=== PATIENT | female | born 1990 | race Caucasian/White ===

== ENCOUNTER 2021-07-10 10:42 | Emergency (ER) | payer OTHER, SELFPAY ==
[2021-07-10 11:08] VITALS: BP 137/76; PULSE 80; RESP 16; TEMP 36.6; O2SAT 100; BMI 23.9
--- NOTE | 2021-07-10 12:02 | ED_ITS ---
HPI - Back Pain/Injury General Chief Complaint: Back Pain/Injury Stated Complaint: low back pain Time Seen by Provider: 07/10/21 12:02 Source: patient Mode of arrival: ambulatory Limitations: no limitations History of Present Illness HPI Narrative: 31 y/o female with history of L5-S1 disc herniation about 5 weeks ago presents to the ER with worsening low back pain despite taking motrin and tylenol. She works as a nurse at [employer], and was diagnosed with disc herniation when she was hospitalized with COVID pneumonia. She had a fever of 103 so MRI was done which showed disc herniation. Her fever was thought to be due to her COVID pneumonia. She has been managed by her primary care doctor with full-dose Tylenol and Motrin which intermittently helps. She also has been using topical [place] balm which helpsand had short course of Flexeril with no improvement. She has a chiropractor appointment next Tuesday and plans to see her PCP early next week, however the pain was so bad this morning she was curled up in a ball crying. The pain now radiates down the back of both of her legs. She has no numbness, weakness, tingling, saddle paresthesias, urinary or bladder incontinence. No fevers. No new trauma. MD elicited complaint: back pain Pertinent past history: prior back pain Onset (ago): week(s) (5) Timing: constant Severity: severe Pain scale (0-10): 10 Similar Symptoms Previously: Yes Quality: burning, sharp and aching Location: lumbar spine Radiation: left leg below the knee and right leg below the knee Exacerbating factors: movement Relieving factors: medication and sitting upright Context: unknown Associated symptoms: denies other symptoms Treatments prior to arrival: NSAIDS and acetaminophen Work related injury: No Related Data Previous Rx's Medication Instructions Recorded oxycodone 5 mg tablet 5 mg PO Q6H PRN #10 tab 07/10/21 prednisone 20 mg tablet 40 mg PO DAILY #10 tab 07/10/21 Allergies Allergy/AdvReac Type Severity Reaction Status Date / Time aspirin [ASA] Allergy Unknown UNKNOWN Unverified 06/12/20 18:24 NSAIDS (Non-Steroidal Allergy Unknown UNKNOWN Unverified 06/12/20 18:24 Anti-Inflamma [NSAIDS (NON-STEROIDAL ANTI-INFLAMMA] Sulfa (Sulfonamide Allergy Unknown UNKNOWN Unverified 06/12/20 18:24 Antibiotics) [SULFA (SULFONAMIDE ANTIBIOTICS)] tramadol [TRAMADOL] Allergy Unknown UNKNOWN Unverified 06/12/20 18:24 Review of Systems Review of Systems: Constitutional: No Fever, No Chills Cardiovascular: No Chest Pain, No SOB Respiratory: No Cough, No Sputum Gastrointestinal: No Nausea, No Vomiting, No Diarrhea, No abdominal Pain Musculoskeletal: + joint pain, + Myalgias Skin: No Skin Lesions, No rash Neuro: No Weakness, No Numbness, No Dizziness, No Headache Psych: No Anxiety/Panic, No Depression Heme/Lymph: No Bruising, No Lymphadenopathy Endocrine: No Polyuria, No Polydipsia [facility] Past Medical History Medical History (Updated 07/10/21 @ 12:12 by KAUSHAL Vicente) Lumbar disc herniation Social History Social History Advance Directives: No Patient : No Physical Exam Vital Signs: Vital Signs: Last Vital Signs Temp 97.8 F 07/10/21 11:08 Pulse 80 07/10/21 11:08 Resp 16 07/10/21 11:08 BP 137/76 07/10/21 11:08 Pulse Ox 100 07/10/21 11:08 Body Mass Index 23.9 Appearance: Alert young female sitting on a chair leaning forward. Oriented X3. No acute distress. HEENT: normal inspection CVS: Normal heart rate and rhythm. Pulses normal. Respiratory: No respiratory distress. Skin: Skin warm and dry. Normal skin color. Normal skin turgor. No rashes. Back: normal inspection, lower lumbar tenderness of spine and bilateral associated soft tissues. +SI joint tenderness bilaterally. DTRs intact throughout. Extremities: atraumaic x4, no edema Neuro: Oriented X 3. No motor deficit. No sensory deficit. Ambulates with a slow but steady gait Course Course Course Narrative: 31-year-old female presenting with worsening low back pain in the setting of known L5-S1 disc herniation. She has no red flag symptoms of low back pain including no bowel or bladder incontinence, no numbness, no tingling, no weakness, and no fevers. She is here seeking temporary relief until she can see her chiropractor next week. She also has plans to see her PCP next week. She has new SI joint irritation with sciatica traveling down both legs. Will plan to start a course of steroids to help with the inflammation. Will also provide p.r.n. oxycodone as needed for severe pain; she was counseled on the use of this medication and is addicting potential. She will be given a very short course. She is stable for discharge home with supportive care and close outpatient follow-up. Critical Care Time Critical Care Time Critical Care Time: No Discharge Plan Discharge Clinical Impression: Sciatica Qualifiers: Laterality: bilateral Qualified Code(s): M54.31 - Sciatica, right side Low back pain Qualifiers: Chronicity: chronic Back pain laterality: bilateral Sciatica presence: with sciatica Sciatica laterality: bilateral sciatica Qualified Code(s): M54.42 - Lumbago with sciatica, left side Patient Disposition: Home, Self-Care Instructions: Sciatica (ED), Lower Back Exercises (ED) Additional Instructions: No bending, lifting or twisting. Use ice several times per day for 20 minutes at a time for the next 48 hours and then change to heat. Take the prescribed oxycodone as needed for severe pain. Do not drive after taking this medication. Continue taking Tylenol and Motrin for pain. Take the prescribed prednisone to help decrease the inflammation and swelling. Follow up with your Primary Care Doctor this week. If your pain worsens, if you develop new numbness, tingling, weakness, loss of function or incontinence call 911 or come back to the ER right away for evaluation. Prescriptions: New prednisone 20 mg tablet 40 mg PO DAILY Qty: 10 RF: 0 oxycodone 5 mg tablet 5 mg PO Q6H PRN (Reason: pain) Qty: 10 RF: 0 Stand Alone Forms: Work/School Release Interventions: ED Discharge Assessment Last Done: 07/10/21 12:25 Discharge Date/Time: 07/10/21 12:26
== END 2021-07-10 12:26 | disposition home or self-care (01) ==
PROVIDERS: Emergency Provider Emergency Medicine
DX: M54.42 Lumbago with sciatica, left side (principal)
CPT/HCPCS: 99283

== ENCOUNTER 2021-08-13 11:29 | Emergency (ER) | payer OTHER, SELFPAY ==
--- NOTE | ~2021-08-13 | MR_ITS ---
EXAMINATION: MR LUMBAR SPINE WITHOUT AND WITH CONTRAST CLINICAL INFORMATION: Worsening lower back pain. Abnormal CT scan. COMPARISON: CT scan of the lumbar spine obtained earlier 08/13/2021. TECHNIQUE: MRI of the lumbar spine was obtained using routine sequences with and without contrast. Intravenous contrast: Gadavist6 mL FINDINGS: VERTEBRAL BODIES AND PARASPINAL STRUCTURES: There is straightening of the normal lumbar lordosis, and there is a mild levoscoliosis. There is marked narrowing of intervertebral disc height at L5-S1 with significant irregular endplate changes, corresponding to findings seen on the recent CT scan. There is intense STIR signal from the bodies of L5 and S1, which demonstrate intense and relatively uniform enhancement. Fluid signal is noted within the intervertebral disc. The disc appears to protrude into the epidural space posteriorly, and there is a fluid collection in the epidural space which has peripheral enhancement, consistent with an evolving abscess. The fluid collection measures approximately 1.0 x 1.8 x 1.3 cm in oblique AP, transverse and craniocaudal dimensions. There is mass effect on the ventral thecal sac. There is also paravertebral fullness with mild enhancement at this level but no discrete fluid collection is demonstrated, and this may be consistent with a phlegmon. The psoas muscles appear to have normal signal without enhancement. The paraspinal soft tissues appear normal. Elsewhere, marrow signal is homogenous. There appear to be a few retroperitoneal lymph nodes on the right at L4-L5. The visualized pelvic structures are unremarkable. CONUS MEDULLARIS AND CAUDA EQUINA: Normal, terminating at the level of T12-L1. The cauda equina nerve roots appear normal and do not demonstrate abnormal enhancement. The filum terminale appears normal. The lower thoracic spinal cord has normal signal without abnormal enhancement. SPINAL LEVELS: L1-L2: The facet joints appear normal bilaterally. Disc contour is normal. There is no central stenosis or foraminal narrowing. L2-L3: The facet joints appear normal bilaterally. Disc contour is normal. There is no central stenosis or foraminal narrowing. L3-L4: The facet joints appear normal bilaterally. Disc contour is normal. There is no central stenosis or foraminal narrowing. L4-L5: The facet joints appear normal. There is a mild diffuse disc bulge, but there is no foraminal nerve root impingement or central stenosis. L5-S1: There is mild bilateral facet arthropathy. As described above, there is posterior protrusion of the intervertebral disc with fluid with peripheral enhancement consistent with an evolving abscess. There is mass effect on and compression of the thecal sac at this level. There are small inferior foraminal disc protrusions bilaterally. MR/MR lumbar spine wo/w con IMPRESSION: 1. There is a peripherally enhancing epidural fluid collection at the level of L5-S1 with distortion the ventral thecal sac, consistent with an evolving abscess. It appears to extend from the intervertebral disc, and there are erosive changes of the adjacent L5-S1 endplates. The collection compresses the thecal sac. 2. In addition, there is marked edematous STIR signal in the bodies of L5 on S1 which demonstrates enhancement, and the findings are consistent with discitis/osteomyelitis at this level. 3. There is soft tissue fullness with enhancement in the paravertebral region at L5-S1, but without a focal fluid collection to suggest a paravertebral abscess at present. 4. This critical result was discussed with KAUSHAL Macedo by telephone on 08/13/2021 at 6:50 PM and it was ascertained that the content and urgency of the report was understood at the time of direct communication.
--- NOTE | ~2021-08-13 | CT_ITS ---
EXAMINATION: CT LUMBAR SPINE WITHOUT CONTRAST CLINICAL INFORMATION: History of herniated disc on MRI Tara L5-S1 with worse pain. COMPARISON: None TECHNIQUE: Helical non-contrast CT images were obtained through the lumbar spine without contrast. Multiplanar reformats were rendered and reviewed. This CT examination was performed using dose optimization techniques as appropriate, variously including the following: *Automated exposure control *Adjustment of mA and/or kV according to patient size (this includes techniques or standardized protocols for targeted exams where dose is matched to indication/reason for exam; i.e. extremities or head) *Use of iterative reconstruction technique DLP: 397 mGy-cm FINDINGS: There are erosive changes at the opposing endplates of L5-S1. There is prominent soft tissue attenuation within the ventral epidural space at the L5-S1 level extending to the right-sided neural foramen. There is associated moderate spinal canal stenosis as well as significant narrowing of the right neural foramen and right subarticular zone. Paravertebral soft tissue abnormality is also seen. The psoas muscles appear symmetric. There is mild degree of levoscoliotic curvature. No significant disc height loss is noted apart from the L5-S1 level. The spinal canal and neural foramina are patent. CT/CT lumbar spine wo con IMPRESSION: At the L5-S1 level there are erosive changes involving the opposing endplates with circumferential soft tissue abnormality involving the paravertebral regions as well as the ventral epidural space spanning the L5-S1 level. Overall, the imaging features are concerning for osteomyelitis discitis with epidural phlegmon. Underlying disc herniation/bulging is also likely present. Spinal canal stenosis appears moderate in addition to significant narrowing of the right subarticular zone and right neural foramen. This critical result was discussed with Maribeth Humphries on 08/13/2021 2:10 PM, and it was ascertained that the content and urgency of the report was understood at the time of direct communication.
[2021-08-13 11:59] VITALS: BP 124/77; PULSE 92; RESP 18; TEMP 36.3; O2SAT 98; BMI 23.9
[2021-08-13] MEDS: predniSONE 20 MG TABLET 60 MG PO (12:28)
[2021-08-13] MEDS: diazePAM 5 MG TABLET 10 MG PO ×2 (12:28→18:28)
[2021-08-13] MEDS: oxyCODONE HCl Immed Release 5 MG TABLET PO (12:29)
--- NOTE | 2021-08-13 12:59 | ED.BACK ---
HPI - Back Pain/Injury General Chief Complaint: Back Pain/Injury <KAUSHAL Macedo - Last Filed: 08/13/21 18:46> Stated Complaint: back pain <KAUSHAL Macedo Last Filed: 08/13/21 18:46> Time Seen by Provider: 08/13/21 12:11 <KAUSHAL Macedo Last Filed: 08/13/21 18:46> Source: patient <KAUSHAL Macedo Last Filed: 08/13/21 18:46> Mode of arrival: ambulatory <KAUSHAL Macedo - Last Filed: 08/13/21 18:46> Limitations: no limitations <KAUSHAL Macedo Last Filed: 08/13/21 18:46> History of Present Illness HPI Narrative: 31-year-old female with a past medical history of L1-S1 disc herniation confirmed by MRI per patient in May 2021 presenting to the ED with complaints of worsening back pain despite taking zvhs-cvh-cenuzrm medications such as Tylenol. She reports that she works as a nurse at [employer] and was diagnosed with disc herniation when she was hospitalized with COVID pneumonia. She had a fever of 103 so MRI was done which showed disc herniation. Her fever was thought to be due to her COVID pneumonia. She has been managed by her primary care provider with full dose Tylenol and Motrin which helps intermittently. She reports she has also been using pqjz-ucu-ogjvkll topical [place] balm which helps and has had short courses of Flexeril with no improvement. She reports that she has been seen a chiropractor although she reports that she does not feel like her pain is getting any better and is just worsening despite all the treatment that she has tried above. She reports that the pain stays in her lumbar spine and it feels like a muscle spasm and occasionally radiates to her left buttocks but does not radiate anywhere further. She denies any fevers, chills, dizziness, headaches, neck pain/injury/stiffness, chest pain or shortness of breath, dyspnea on exertion, orthopnea, palpitations, abdominal pain, dysuria, hematuria, abnormal vaginal discharge, numbness, tingling, weakness, saddle paresthesias, urinary or bowel incontinence or retention, recent travel or falls or any other symptoms complaints or concerns at this time. Mother showed me text messages of an MRI results and I explained her that I will obtain the results of the MRI. <KAUSHAL Macedo - Last Filed: 08/13/21 18:46> MD elicited complaint: back pain <KAUSHAL Macedo - Last Filed: 08/13/21 18:46> Pertinent past history: prior back pain <KAUSHAL Macedo - Last Filed: 08/13/21 18:46> Onset (ago): day(s) <KAUSHAL Macedo - Last Filed: 08/13/21 18:46> Timing: constant and progressively worsening <KAUSHAL Macedo - Last Filed: 08/13/21 18:46> Severity: severe <KAUSHAL Macedo - Last Filed: 08/13/21 18:46> Pain scale (0-10): 10 <KAUSHAL Macedo - Last Filed: 08/13/21 18:46> Similar Symptoms Previously: Yes <KAUSHAL Macedo - Last Filed: 08/13/21 18:46> Quality: aching <KAUSHAL Macedo - Last Filed: 08/13/21 18:46> Location: lumbar spine <KAUSHAL Macedo - Last Filed: 08/13/21 18:46> Radiation: none <KAUSHAL Macedo - Last Filed: 08/13/21 18:46> Exacerbating factors: movement, supine positioning, sitting upright, walking and lifting <KAUSHAL Macedo - Last Filed: 08/13/21 18:46> Relieving factors: none <KAUSHAL Macedo - Last Filed: 08/13/21 18:46> Context: unknown <KAUSHAL Macedo - Last Filed: 08/13/21 18:46> Associated symptoms: difficulty walking <KAUSHAL Macedo - Last Filed: 08/13/21 18:46> Treatments prior to arrival: other (Vhty-cgu-ywuyaen medication no symptomatic relief) <KAUSHAL Macedo - Last Filed: 08/13/21 18:46> Work related injury: No <KAUSHAL Macedo - Last Filed: 08/13/21 18:46> Related Data Home Medications: Previous Rx's Medication Instructions Recorded oxycodone 5 mg tablet 5 mg PO Q6H PRN #10 tab 07/10/21 prednisone 20 mg tablet 40 mg PO DAILY #10 tab 07/10/21 <KAUSHAL Macedo - Last Filed: 08/13/21 18:46> Allergies/Adverse Reactions: Allergies Allergy/AdvReac Type Severity Reaction Status Date / Time aspirin [ASA] AdvReac Unknown UNKNOWN Unverified 08/13/21 11:58 NSAIDS (Non-Steroidal AdvReac Unknown UNKNOWN Unverified 08/13/21 11:58 Anti-Inflamma [NSAIDS (NON-STEROIDAL ANTI-INFLAMMA] Sulfa (Sulfonamide AdvReac Unknown UNKNOWN Unverified 08/13/21 11:58 Antibiotics) [SULFA (SULFONAMIDE ANTIBIOTICS)] tramadol [TRAMADOL] AdvReac Unknown UNKNOWN Unverified 08/13/21 11:58 <KAUSHAL Macedo - Last Filed: 08/13/21 18:46> Review of Systems Review of Systems: Constitutional : No trauma, No Weight loss, No Fever, No Chills, ENT/Mouth : No Hearing loss, No Ear Pain, No Nasal Congestion, No Sinus Pain, No Hoarseness, No sore throat, No Rhinorrhea, No Swallowing Difficulty Cardiovascular : No Chest Pain, No SOB Respiratory : No Cough, No Dyspnea Gastrointestinal : No Nausea, No Vomiting, No Diarrhea, No abdominal Pain, No Hematochezia, No Melena Genitourinary : No Dysuria, No Urinary Frequency, No Hematuria, No Urinary or Bowel Incontinence/retention Musculoskeletal : + Back pain, No neck pain, No joint stiffness, No joint swelling Skin : No Skin Lesions, No rash or signs of infection Neuro : No Weakness, No radiation, No Numbness, No Paresthesias, No headache, no loss of bowel or bladder incontinence, no saddle anesthesia, Focal weakness, No radiation Denies history of IV drug usage. <KAUSHAL Macedo - Last Filed: 08/13/21 18:46> Yes all other systems are reviewed and are negative <KAUSHAL Macedo - Last Filed: 08/13/21 18:46> [facility], [facility] Past Medical History Attestation statement: The following information was validated with the patient. <KAUSHAL Macedo - Last Filed: 08/13/21 18:46> Medical History: Medical History Lumbar disc herniation <KAUSAHL Macedo - Last Filed: 08/13/21 18:46> Social History Social History: Social History Advance Directives: No Advance Directives Information Provided: No Patient : No <KAUSHAL Macedo - Last Filed: 08/13/21 18:46> Physical Exam Vital Signs: Vital Signs: Last Vital Signs Temp 98.2 F 08/13/21 20:15 Pulse 94 08/13/21 20:15 Resp 18 08/13/21 20:15 BP 126/79 08/13/21 20:15 Pulse Ox 97 08/13/21 20:15 Body Mass Index 23.9 vital signs have been reviewed as normal and appeared to be correct. Blood pressure normal. Heart rate normal. Respiration rate normal. Temperature normal. Oxygen saturation normal. <KAUSHAL Macedo - Last Filed: 08/13/21 18:46> Vital Signs: Last Vital Signs Temp 98.2 F 08/13/21 20:15 Pulse 94 08/13/21 20:15 Resp 18 08/13/21 20:15 BP 126/79 08/13/21 20:15 Pulse Ox 97 08/13/21 20:15 Body Mass Index 23.9 <KAUSHAL Salas - Last Filed: 08/13/21 20:21> Appearance: Alert. Oriented X3. No acute distress. Head: Normal external exam. Normocephalic. Atraumatic. Eyes: PERRLA. EOMI. Conjunctiva and sclera normal. Eyelids normal. ENT: Pharynx normal. Uvula midline. Moist mucous membranes. Neck: Normal inspection. Neck supple. FROM. No adenopathy. No meningeal signs. No neck mass noted. Nontender. CVS: Normal heart rate and rhythm. Heart sound normal. No murmurs noted. Pulses normal throughout. Respiratory: No respiratory distress. Painless inspiration. Breath sounds normal. No wheezes/rales/rhonchi noted. Chest nontender. No accessory muscle usage noted or decreased air movement noted. Abdomen: Soft and nontender. Bowel sounds normal in all 4 quadrants. No distention noted. No organomegaly noted. No visible injury noted. Back: No CVA tenderness. Full range of motion noted. No obvious deformities, or edema. Mild mid and para-spinal muscular tenderness from lumbar region to coccyx. Full ROM in back and lower extremities. 5/5 strength hip extension/flexion, abduction, adduction. Mild Lumbar pain with hip flexion against resistance. Straight leg raise test negative on right; Straight leg raise test negative on left; Reflexes normal ankle and knee bilaterally; EHL motor strength normal bilaterally. No rashes/lesion/induration/fluctuance or signs infection noted. Rectum: No hemorrhoids noted. Patient has normal rectal sensation/rectal tone. Normal sphincter tone. Skin: Skin warm and dry. Normal skin color. Normal skin turgor. No rashes/lesions/lacerations noted. Extremities: Extremities exhibit normal range of motion. Extremities nontender. Neuro: Oriented X 3. No motor deficit. No sensory deficit. Reflexes normal. Patient has a normal slow steady gait. <KAUSHAL Macedo - Last Filed: 08/13/21 18:46> Course Course Course Narrative: 12:20pm - Pt c likely muscular pain, but could be herniated disc. Normal slow steady gait. She has a normal rectal exam. Normal rectal sensation/tone. Normal sphincter tone. Neuro exam shows no deficits. Not c/w Pyelo/UTI/kidney stone/spinal fx. Not cauda equina syndrome. Not c/w AAA/epidural abscess/dissection.No high risk Hx (Incont, fever, immunosupp, recent surgery/LP, coag, signif trauma, wt loss, puls mass, hx/o Ca, TB, or IVDU) to warrant MRI although when I reviewed the patient's MRI with and without contrast on 06/11/2021 it revealed L1-S1 broad-based central disc extrusion deforming the ventral epidural soft tissues and causing narrowing of the bilateral subarticular zones with likely compromise of the bilateral S1 transversing nerve root. L4-L5 small central annular tear. Otherwise, unremarkable MRI of lumbar spine with and without contrast. No evidence of epidural abscess. Therefore at this time will obtain a CT scan of lumbar spine without contrast provide symptomatic relief with 30 mg of Toradol, 60 mg of prednisone, 10 mg of Valium and 5 mg of oxycodone then re-evaluate. <KAUSHAL Macedo - Last Filed: 08/13/21 18:46> Reevaluation(s) Reevaluation #1: - CT scan of lumbar spine without contrast revealed at the L5-S1 level there are erosive changes involving the opposing endplates with circumferential soft tissue abnormality involving the para vertebrae regions as well as the ventral epidural space spanning the L5-S1 level. Overall, the imaging features are concerning for osteomyelitis discitis with epidural phlegmon. Underlying disc herniated/bulging is also likely present. Spinal canal stenosis appears moderate in addition to significant narrowing of the right subarticular zone and right neural foramen. - therefore at this time patient will need an MRI with and without contrast to rule out the above - therefore will obtain labs, UA, UHCG. MRI screening form filled out by the patient her mother at bedside and the RN an MRI called reported that the MRI will be done after 17:00. Patient and mother at bedside understand agree this plan. <KAUSHAL Macedo - Last Filed: 08/13/21 18:46> Time: 14:23 <KAUSHAL Macedo - Last Filed: 08/13/21 18:46> Reevaluation #2: - MRI pending at this time sign out to MONIKA Weber pending MRI with and without contrast results <KAUSHAL Macedo - Last Filed: 08/13/21 18:46> Time: 18:46 <KAUSHAL Macedo - Last Filed: 08/13/21 18:46> Reevaluation #3: Spoke to Dr. Ephraim Sanchez Neurosurgery at [facility], who stated without this being a cauda equia syndrome, she would not need surgery, but could be admitted for pain management and antibiotics, and would need an IR biopsy. Will hear back from [facility] hospitalist if she can be transferred directly to acute care floor. <KAUSHAL Salas - Last Filed: 08/13/21 20:21> Additional Reevaluation(s): MRI today: MR/MR lumbar spine wo/w con IMPRESSION: 1. There is a peripherally enhancing epidural fluid collection at the level of L5-S1 with distortion the ventral thecal sac, consistent with an evolving abscess. It appears to extend from the intervertebral disc, and there are erosive changes of the adjacent L5-S1 endplates. The collection compresses the thecal sac. ? 2. In addition, there is marked edematous STIR signal in the bodies of L5 on S1 which demonstrates enhancement, and the findings are consistent with discitis/osteomyelitis at this level. ? 3. There is soft tissue fullness with enhancement in the paravertebral region at L5-S1, but without a focal fluid collection to suggest a paravertebral abscess at present. ? 4. This critical result was discussed with KAUSHAL Macedo by telephone on 08/13/2021 at 6:50 PM and it was ascertained that the content and urgency of the report was understood at the time of direct communication. Patient admitted to [facility] 2 neuro acute floor, accepting <KAUSHAL Salas - Last Filed: 08/13/21 20:21> MDM - Back Pain/Injury Medical Records Attestation: I reviewed the patient's medical records. <KAUSHAL Macedo - Last Filed: 08/13/21 18:46> Lab Data Result diagrams: : 08/13/21 14:30 08/13/21 14:30 <KAUSHAL Macedo - Last Filed: 08/13/21 18:46> Labs: Lab Results 08/13/21 08/13/21 08/13/21 Range/Units 14:30 14:30 14:30 WBC 10.6 (4.8-10.8) X10*3/uL RBC 4.16 L (4.20-5.50) X10*6/uL Hgb 11.7 L (12.0-16.0) g/dl Hct 36.3 L (37.0-47.0) % MCV 87.3 (80.0-98.0) fL MCH 28.1 (27.0-33.0) pg MCHC 32.2 (31.0-35.0) g/dl RDW 13.8 (11.0-16.0) % Plt Count 312 (160-400) X10*3/uL MPV 9.5 (9.4-12.3) fL Immature Gran % (Auto) 0.3 (0.0-0.4) % Neut % (Auto) 86.3 H (45-73) % Lymph % (Auto) 9.5 L (20-40) % [place] % (Auto) 3.7 (2-11) % Eos % (Auto) 0.1 (0-4) % Baso % (Auto) 0.1 (0-2) % Lymph # (Auto) 1.0 L (1.2-4.9) X10*3/uL [place] # (Auto) 0.4 (0.1-1.2) X10*3/uL Eos # (Auto) 0.0 (0.0-0.4) X10*3/uL Baso # (Auto) 0.0 (0.0-0.2) X10*3/uL Abs Immat Gran (auto) 0.03 (0.00-0.03) X10*3/uL Absolute Neuts (auto) 9.2 H (2.0-8.3) x10*3/uL Absolute Nucleated RBC 0.000 (0.0-0.012) X10*3/uL Nucleated RBC % (auto) 0.0 (0.0-0.2) /100WBC PT 11.1 (9.9-13.0) SEC INR 1.0 (0.9-1.1) Sodium 138 (135-145) mmol/L Potassium 3.9 (3.3-5.1) mmol/L Chloride 106 (96-108) mmol/L Carbon Dioxide 20 L (22-29) mmol/L Anion Gap 16 (12-20) BUN 14 (9-16) mg/dL Creatinine 0.62 (0.5-1.4) mg/dL Estim Creat Clear Calc 110.7 Estimated GFR > 60 Random Glucose 107 (60-115) mg/dL Lactic Acid (0.5-2.0) mmol/L Calcium 9.5 (8.4-10.2) mg/dL Magnesium 2.1 (1.6-2.6) mg/dL Total Bilirubin 0.3 (0.0-1.0) mg/dL AST 13 (5-31) U/L ALT 16 (0-31) U/L Alkaline Phosphatase 164 H (39-117) U/L Total Protein 7.9 (6.5-8.0) g/dL Albumin 4.4 (3.5-5.0) g/dL Urine Color Urine Appearance Urine pH (5.0-8.0) Ur Specific [place] (1.005-1.025) Urine Protein (NEG-TRACE) MG/DL Urine Glucose (UA) (NEG) MG/DL Urine Ketones (NEG) MG/DL Urine Blood (NEG) Urine Nitrite (NEG) Ur Leukocyte Esterase (NEG) Urine RBC (0) /HPF Urine WBC (0-4) /HPF Ur Squamous Epith Cells /LPF Urine Bacteria /LPF Urine Test (NEGATIVE) COVID-19 ([facility]) (Negative) COVID-19 Clin Com 08/13/21 08/13/21 08/13/21 Range/Units 14:31 15:49 15:49 WBC (4.8-10.8) X10*3/uL RBC (4.20-5.50) X10*6/uL Hgb (12.0-16.0) g/dl Hct (37.0-47.0) % MCV (80.0-98.0) fL MCH (27.0-33.0) pg MCHC (31.0-35.0) g/dl RDW (11.0-16.0) % Plt Count (160-400) X10*3/uL MPV (9.4-12.3) fL Immature Gran % (Auto) (0.0-0.4) % Neut % (Auto) (45-73) % Lymph % (Auto) (20-40) % [place] % (Auto) (2-11) % Eos % (Auto) (0-4) % Baso % (Auto) (0-2) % Lymph # (Auto) (1.2-4.9) X10*3/uL [place] # (Auto) (0.1-1.2) X10*3/uL Eos # (Auto) (0.0-0.4) X10*3/uL Baso # (Auto) (0.0-0.2) X10*3/uL Abs Immat Gran (auto) (0.00-0.03) X10*3/uL Absolute Neuts (auto) (2.0-8.3) x10*3/uL Absolute Nucleated RBC (0.0-0.012) X10*3/uL Nucleated RBC % (auto) (0.0-0.2) /100WBC PT (9.9-13.0) SEC INR (0.9-1.1) Sodium (135-145) mmol/L Potassium (3.3-5.1) mmol/L Chloride (96-108) mmol/L Carbon Dioxide (22-29) mmol/L Anion Gap (12-20) BUN (9-16) mg/dL Creatinine (0.5-1.4) mg/dL Estim Creat Clear Calc Estimated GFR Random Glucose (60-115) mg/dL Lactic Acid (0.5-2.0) mmol/L Calcium (8.4-10.2) mg/dL Magnesium (1.6-2.6) mg/dL Total Bilirubin (0.0-1.0) mg/dL AST (5-31) U/L ALT (0-31) U/L Alkaline Phosphatase (39-117) U/L Total Protein (6.5-8.0) g/dL Albumin (3.5-5.0) g/dL Urine Color YELLOW Urine Appearance CLEAR Urine pH 6.0 (5.0-8.0) Ur Specific [place] 1.025 (1.005-1.025) Urine Protein 1+ H (NEG-TRACE) MG/DL Urine Glucose (UA) NEG (NEG) MG/DL Urine Ketones 5 (NEG) MG/DL Urine Blood TRACE (NEG) Urine Nitrite NEG (NEG) Ur Leukocyte Esterase NEG (NEG) Urine RBC 1-4 (0) /HPF Urine WBC 0 (0-4) /HPF Ur Squamous Epith Cells 1+ /LPF Urine Bacteria NONE /LPF Urine Test NEGATIVE (NEGATIVE) COVID-19 ([facility]) Negative (Negative) COVID-19 Clin Com See Note 08/13/21 Range/Units 19:41 WBC (4.8-10.8) X10*3/uL RBC (4.20-5.50) X10*6/uL Hgb (12.0-16.0) g/dl Hct (37.0-47.0) % MCV (80.0-98.0) fL MCH (27.0-33.0) pg MCHC (31.0-35.0) g/dl RDW (11.0-16.0) % Plt Count (160-400) X10*3/uL MPV (9.4-12.3) fL Immature Gran % (Auto) (0.0-0.4) % Neut % (Auto) (45-73) % Lymph % (Auto) (20-40) % [place] % (Auto) (2-11) % Eos % (Auto) (0-4) % Baso % (Auto) (0-2) % Lymph # (Auto) (1.2-4.9) X10*3/uL [place] # (Auto) (0.1-1.2) X10*3/uL Eos # (Auto) (0.0-0.4) X10*3/uL Baso # (Auto) (0.0-0.2) X10*3/uL Abs Immat Gran (auto) (0.00-0.03) X10*3/uL Absolute Neuts (auto) (2.0-8.3) x10*3/uL Absolute Nucleated RBC (0.0-0.012) X10*3/uL Nucleated RBC % (auto) (0.0-0.2) /100WBC PT (9.9-13.0) SEC INR (0.9-1.1) Sodium (135-145) mmol/L Potassium (3.3-5.1) mmol/L Chloride (96-108) mmol/L Carbon Dioxide (22-29) mmol/L Anion Gap (12-20) BUN (9-16) mg/dL Creatinine (0.5-1.4) mg/dL Estim Creat Clear Calc Estimated GFR Random Glucose (60-115) mg/dL Lactic Acid 0.7 (0.5-2.0) mmol/L Calcium (8.4-10.2) mg/dL Magnesium (1.6-2.6) mg/dL Total Bilirubin (0.0-1.0) mg/dL AST (5-31) U/L ALT (0-31) U/L Alkaline Phosphatase (39-117) U/L Total Protein (6.5-8.0) g/dL Albumin (3.5-5.0) g/dL Urine Color Urine Appearance Urine pH (5.0-8.0) Ur Specific [place] (1.005-1.025) Urine Protein (NEG-TRACE) MG/DL Urine Glucose (UA) (NEG) MG/DL Urine Ketones (NEG) MG/DL Urine Blood (NEG) Urine Nitrite (NEG) Ur Leukocyte Esterase (NEG) Urine RBC (0) /HPF Urine WBC (0-4) /HPF Ur Squamous Epith Cells /LPF Urine Bacteria /LPF Urine Test (NEGATIVE) COVID-19 ([facility]) (Negative) COVID-19 Clin Com <KAUSHAL Macedo - Last Filed: 08/13/21 18:46> Lab Results 08/13/21 08/13/21 08/13/21 Range/Units 14:30 14:30 14:30 WBC 10.6 (4.8-10.8) X10*3/uL RBC 4.16 L (4.20-5.50) X10*6/uL Hgb 11.7 L (12.0-16.0) g/dl Hct 36.3 L (37.0-47.0) % MCV 87.3 (80.0-98.0) fL MCH 28.1 (27.0-33.0) pg MCHC 32.2 (31.0-35.0) g/dl RDW 13.8 (11.0-16.0) % Plt Count 312 (160-400) X10*3/uL MPV 9.5 (9.4-12.3) fL Immature Gran % (Auto) 0.3 (0.0-0.4) % Neut % (Auto) 86.3 H (45-73) % Lymph % (Auto) 9.5 L (20-40) % [place] % (Auto) 3.7 (2-11) % Eos % (Auto) 0.1 (0-4) % Baso % (Auto) 0.1 (0-2) % Lymph # (Auto) 1.0 L (1.2-4.9) X10*3/uL [place] # (Auto) 0.4 (0.1-1.2) X10*3/uL Eos # (Auto) 0.0 (0.0-0.4) X10*3/uL Baso # (Auto) 0.0 (0.0-0.2) X10*3/uL Abs Immat Gran (auto) 0.03 (0.00-0.03) X10*3/uL Absolute Neuts (auto) 9.2 H (2.0-8.3) x10*3/uL Absolute Nucleated RBC 0.000 (0.0-0.012) X10*3/uL Nucleated RBC % (auto) 0.0 (0.0-0.2) /100WBC PT 11.1 (9.9-13.0) SEC INR 1.0 (0.9-1.1) Sodium 138 (135-145) mmol/L Potassium 3.9 (3.3-5.1) mmol/L Chloride 106 (96-108) mmol/L Carbon Dioxide 20 L (22-29) mmol/L Anion Gap 16 (12-20) BUN 14 (9-16) mg/dL Creatinine 0.62 (0.5-1.4) mg/dL Estim Creat Clear Calc 110.7 Estimated GFR > 60 Random Glucose 107 (60-115) mg/dL Lactic Acid (0.5-2.0) mmol/L Calcium 9.5 (8.4-10.2) mg/dL Magnesium 2.1 (1.6-2.6) mg/dL Total Bilirubin 0.3 (0.0-1.0) mg/dL AST 13 (5-31) U/L ALT 16 (0-31) U/L Alkaline Phosphatase 164 H (39-117) U/L Total Protein 7.9 (6.5-8.0) g/dL Albumin 4.4 (3.5-5.0) g/dL Urine Color Urine Appearance Urine pH (5.0-8.0) Ur Specific [place] (1.005-1.025) Urine Protein (NEG-TRACE) MG/DL Urine Glucose (UA) (NEG) MG/DL Urine Ketones (NEG) MG/DL Urine Blood (NEG) Urine Nitrite (NEG) Ur Leukocyte Esterase (NEG) Urine RBC (0) /HPF Urine WBC (0-4) /HPF Ur Squamous Epith Cells /LPF Urine Bacteria /LPF Urine Test (NEGATIVE) COVID-19 ([facility]) (Negative) COVID-19 Clin Com 08/13/21 08/13/21 08/13/21 Range/Units 14:31 15:49 15:49 WBC (4.8-10.8) X10*3/uL RBC (4.20-5.50) X10*6/uL Hgb (12.0-16.0) g/dl Hct (37.0-47.0) % MCV (80.0-98.0) fL MCH (27.0-33.0) pg MCHC (31.0-35.0) g/dl RDW (11.0-16.0) % Plt Count (160-400) X10*3/uL MPV (9.4-12.3) fL Immature Gran % (Auto) (0.0-0.4) % Neut % (Auto) (45-73) % Lymph % (Auto) (20-40) % [place] % (Auto) (2-11) % Eos % (Auto) (0-4) % Baso % (Auto) (0-2) % Lymph # (Auto) (1.2-4.9) X10*3/uL [place] # (Auto) (0.1-1.2) X10*3/uL Eos # (Auto) (0.0-0.4) X10*3/uL Baso # (Auto) (0.0-0.2) X10*3/uL Abs Immat Gran (auto) (0.00-0.03) X10*3/uL Absolute Neuts (auto) (2.0-8.3) x10*3/uL Absolute Nucleated RBC (0.0-0.012) X10*3/uL Nucleated RBC % (auto) (0.0-0.2) /100WBC PT (9.9-13.0) SEC INR (0.9-1.1) Sodium (135-145) mmol/L Potassium (3.3-5.1) mmol/L Chloride (96-108) mmol/L Carbon Dioxide (22-29) mmol/L Anion Gap (12-20) BUN (9-16) mg/dL Creatinine (0.5-1.4) mg/dL Estim Creat Clear Calc Estimated GFR Random Glucose (60-115) mg/dL Lactic Acid (0.5-2.0) mmol/L Calcium (8.4-10.2) mg/dL Magnesium (1.6-2.6) mg/dL Total Bilirubin (0.0-1.0) mg/dL AST (5-31) U/L ALT (0-31) U/L Alkaline Phosphatase (39-117) U/L Total Protein (6.5-8.0) g/dL Albumin (3.5-5.0) g/dL Urine Color YELLOW Urine Appearance CLEAR Urine pH 6.0 (5.0-8.0) Ur Specific [place] 1.025 (1.005-1.025) Urine Protein 1+ H (NEG-TRACE) MG/DL Urine Glucose (UA) NEG (NEG) MG/DL Urine Ketones 5 (NEG) MG/DL Urine Blood TRACE (NEG) Urine Nitrite NEG (NEG) Ur Leukocyte Esterase NEG (NEG) Urine RBC 1-4 (0) /HPF Urine WBC 0 (0-4) /HPF Ur Squamous Epith Cells 1+ /LPF Urine Bacteria NONE /LPF Urine Test NEGATIVE (NEGATIVE) COVID-19 ([facility]) Negative (Negative) COVID-19 Clin Com See Note 08/13/21 Range/Units 19:41 WBC (4.8-10.8) X10*3/uL RBC (4.20-5.50) X10*6/uL Hgb (12.0-16.0) g/dl Hct (37.0-47.0) % MCV (80.0-98.0) fL MCH (27.0-33.0) pg MCHC (31.0-35.0) g/dl RDW (11.0-16.0) % Plt Count (160-400) X10*3/uL MPV (9.4-12.3) fL Immature Gran % (Auto) (0.0-0.4) % Neut % (Auto) (45-73) % Lymph % (Auto) (20-40) % [place] % (Auto) (2-11) % Eos % (Auto) (0-4) % Baso % (Auto) (0-2) % Lymph # (Auto) (1.2-4.9) X10*3/uL [place] # (Auto) (0.1-1.2) X10*3/uL Eos # (Auto) (0.0-0.4) X10*3/uL Baso # (Auto) (0.0-0.2) X10*3/uL Abs Immat Gran (auto) (0.00-0.03) X10*3/uL Absolute Neuts (auto) (2.0-8.3) x10*3/uL Absolute Nucleated RBC (0.0-0.012) X10*3/uL Nucleated RBC % (auto) (0.0-0.2) /100WBC PT (9.9-13.0) SEC INR (0.9-1.1) Sodium (135-145) mmol/L Potassium (3.3-5.1) mmol/L Chloride (96-108) mmol/L Carbon Dioxide (22-29) mmol/L Anion Gap (12-20) BUN (9-16) mg/dL Creatinine (0.5-1.4) mg/dL Estim Creat Clear Calc Estimated GFR Random Glucose (60-115) mg/dL Lactic Acid 0.7 (0.5-2.0) mmol/L Calcium (8.4-10.2) mg/dL Magnesium (1.6-2.6) mg/dL Total Bilirubin (0.0-1.0) mg/dL AST (5-31) U/L ALT (0-31) U/L Alkaline Phosphatase (39-117) U/L Total Protein (6.5-8.0) g/dL Albumin (3.5-5.0) g/dL Urine Color Urine Appearance Urine pH (5.0-8.0) Ur Specific [place] (1.005-1.025) Urine Protein (NEG-TRACE) MG/DL Urine Glucose (UA) (NEG) MG/DL Urine Ketones (NEG) MG/DL Urine Blood (NEG) Urine Nitrite (NEG) Ur Leukocyte Esterase (NEG) Urine RBC (0) /HPF Urine WBC (0-4) /HPF Ur Squamous Epith Cells /LPF Urine Bacteria /LPF Urine Test (NEGATIVE) COVID-19 ([facility]) (Negative) COVID-19 Clin Com <KAUSHAL Salas - Last Filed: 08/13/21 20:21> Imaging Data CT scan of lumbar spine without contrast: Attestation: I personally reviewed and interpreted this imaging study as follows: <KAUSHAL Macedo - Last Filed: 08/13/21 18:46> Critical Care Time Critical Care Time Critical Care Time: Yes <KAUSHAL Macedo - Last Filed: 08/13/21 18:46> Total Critical Care Time: 60 <KAUSHAL Macedo - Last Filed: 08/13/21 18:46> Attestation: I personally attest to this time spent taking care of the patient <KAUSHAL Macedo - Last Filed: 08/13/21 18:46> Discharge Plan Discharge Clinical Impression: Low back pain <KAUSHAL Macedo - Last Filed: 08/13/21 18:46> Prescriptions: No Action prednisone 20 mg tablet 40 mg PO DAILY Qty: 10 RF: 0 oxycodone 5 mg tablet 5 mg PO Q6H PRN (Reason: pain) Qty: 10 RF: 0 <KAUSHAL Macedo - Last Filed: 08/13/21 18:46>
[2021-08-13 13:38] VITALS: RESP 18
[2021-08-13 14:38] LABS: MANUAL DIFF FLAG NO
[2021-08-13 14:41] LABS: Basophils Percent Auto 0.1 % (0-2); Eosinophils Percent Auto 0.1 % (0-4); Hematocrit 36.3 % (37.0-47.0); Hemoglobin 11.7 g/dl (12.0-16.0); Imm Gran Abs Auto 0.03 X10*3/uL (0.00-0.03); Imm Gran Pct Auto 0.3 % (0.0-0.4); Lymphocytes Percent Auto 9.5 % (20-40); Mean Corpuscular HGB Conc 32.2 g/dl (31.0-35.0); Mean Corpuscular Hemoglobin 28.1 pg (27.0-33.0); Mean Corpuscular Volume 87.3 fL (80.0-98.0); Mean Platelet Volume 9.5 fL (9.4-12.3); Monocytes Absolute Auto 0.4 X10*3/uL (0.1-1.2); Monocytes Percent Auto 3.7 % (2-11); Neutrophils Absolute Auto 9.2 x10*3/uL (2.0-8.3); Neutrophils Percent Auto 86.3 % (45-73); Platelet Count 312 X10*3/uL (160-400); Red Blood Count 4.16 X10*6/uL (4.20-5.50); Red Cell Distribution Width 13.8 % (11.0-16.0); White Blood Count 10.6 X10*3/uL (4.8-10.8)
[2021-08-13 14:46] LABS: Prothrombin Time 11.1 SEC (9.9-13.0)
[2021-08-13] MEDS: Ketorolac Tromethamine 15 MG/ML VIAL 30 MG IVPUSH (14:47)
[2021-08-13 14:57] LABS: Alanine Aminotransferase 16 U/L (0-31); Albumin Level 4.4 g/dL (3.5-5.0); Alkaline Phosphatase 164 U/L (39-117); Anion Gap 16 (12-20); Aspartate Amino Transferase 13 U/L (5-31); Bilirubin Total 0.3 mg/dL (0.0-1.0); Blood Urea Nitrogen 14 mg/dL (9-16); Calcium 9.5 mg/dL (8.4-10.2); Carbon Dioxide 20 mmol/L (22-29); Chloride 106 mmol/L (96-108); Creatinine Clr Calc Pharmacy 110.7; Estimated Glomerular Filt Rate > 60; Glucose Random 107 mg/dL (60-115); Magnesium 2.1 mg/dL (1.6-2.6); Potassium 3.9 mmol/L (3.3-5.1); Sodium 138 mmol/L (135-145); Total Protein 7.9 g/dL (6.5-8.0)
[2021-08-13 15:02] LABS: COVID-19 Test Negative (Negative)
[2021-08-13 15:03] VITALS: BP 127/74; PULSE 103; RESP 18; O2SAT 97
[2021-08-13 15:20] VITALS: RESP 18
[2021-08-13 15:55] LABS: Appearance Urine CLEAR; Color Urine YELLOW; Glucose Urine UA NEG (NEG); Leukocyte Esterase Urine NEG (NEG); Nitrite Urine NEG (NEG); Specific Gravity - Urine 1.025 (1.005-1.025); UACC Culture Trigger NO; Urine Blood TRACE (NEG); Urine Ketones 5 MG/DL (NEG); Urine Protein 1+ MG/DL (NEG-TRACE)
[2021-08-13 16:01] LABS: UPreg QC Valid YES; Urine Pregnancy NEGATIVE (NEGATIVE)
[2021-08-13 16:04] LABS: Squamous Epithelial Cell Urine 1+ /LPF; WBC Urine 0 /HPF (0-4)
[2021-08-13] MEDS: Ketorolac Tromethamine 15 MG/ML VIAL IVPUSH (18:21)
[2021-08-13] MEDS: Piperacillin Sodium/Tazobactam 3.375 GM in 0.9 % Sodium Chloride 50 ML IV (19:43)
[2021-08-13 19:57] LABS: Lactic Acid 0.7 mmol/L (0.5-2.0)
[2021-08-13 20:15] VITALS: BP 126/79; PULSE 94; RESP 18; TEMP 36.8; O2SAT 97
[2021-08-13] MEDS: vancomycin HCL 750 MG in 0.9 % Sodium Chloride 250 ML 265 MG IV (20:44)
[2021-08-13] MEDS: oxyCODONE HCl Immed Release 5 MG TABLET 10 MG PO (21:57)
== END 2021-08-13 21:59 | disposition short-term general hospital (02) ==
PROVIDERS: Physician Assistant; Physician Assistant Medical; Emergency Provider Emergency Medicine Emergency Medical Services
DX: M54.50 Low back pain, unspecified (principal); Z20.822 Contact with and (suspected) exposure to COVID-19; M51.26 Other intervertebral disc displacement, lumbar region
CPT/HCPCS: 36415; 72131; 72158; 80053; 81001; 81025; 83605; 83735; 85025; 85610; 87040; 87635; 96365; 96375; 96376; 99285; 99291; A9585; J1885; J2543; J3370